=== PATIENT | male | born 1980 | race Caucasian/White ===

== ENCOUNTER 2019-11-27 19:04 | Emergency (ER) | payer OTHER ==
[~2019-11-27] VITALS: Ht 188 cm; Wt 98.3 kg
[2019-11-27 19:14] VITALS: BP 119/81
--- NOTE | 2019-11-27 20:30 | NUR ---
PT STATES HE TOOK 600 mg IBUPROFEN AT APPROX. 1700
[2019-11-27] MEDS ORDERED: ketorolac tromethamine 15mg/ml inj. IM ONE (22:15)
[2019-11-27] MEDS ORDERED: CYCL-1 PO (22:27)
[2019-11-27] MEDS ORDERED: IBUP-1984 PO (22:27)
== END 2019-11-27 23:42 | disposition home or self-care (01) ==
LOC: ER 19:05
DX: S39.012A Strain of muscle, fascia and tendon of lower back, initial encounter (principal); Z91.030 Bee allergy status; W01.0XXA Fall on same level from slipping, tripping and stumbling without subsequent striking against object, initial encounter; Y93.89 Activity, other specified; Y92.89 Other specified places as the place of occurrence of the external cause; Y99.9 Unspecified external cause status
CPT/HCPCS: 96372; 99283; J1885

== ENCOUNTER → 2023-12-17 | Outpatient (CLI) | payer MEDICAID ==
[~2023-12-17] MED LIST: CYCL-1 PO
== END | disposition home or self-care (01) ==
LOC: RAD 12:55
PROVIDERS: ATTEND Nurse Practitioner
DX: M25.512 Pain in left shoulder (principal); M54.2 Cervicalgia
CPT/HCPCS: 72050